=== PATIENT | female | born 1980 | race Caucasian/White ===

== ENCOUNTER 2017-05-02 09:52 | Emergency (ER) | payer OTHER ==
[~2017-05-02] VITALS: Ht 172.7 cm; Wt 84.5 kg
[~2017-05-02 09:52] MED LIST: ASCORBIC ACID500 M3 PO; BACLOFEN10 MG PO; CLARITIN10 M2 PO; COUMADIN2.5 MG PO; COUMADIN5 MG PO; DOCUSATE SODIU100 MG PO; FERROUS SULFAT325 MG PO; FOLIC ACID1 MG PO; GABAPENTIN300 MG PO; MORPHINE SULFAT15 M1 PO; MOTRIN800 MG PO; OXYCODONE HCL10 MG PO; POLYETHYLENE GL17 GM PO; Percocet 5/325,Endoc PO; SENNA-TIME S T1 EACH PO; THERAGRAN1 TABLET PO; ZANTAC300 MG PO
[2017-05-02 10:26] LABS: POINT-OF-CARE METER ID UU13113778
[2017-05-02 10:51] LABS: BASOPHIL COUNT 0.1 K/uL (0-0.1); EOSINOPHIL (%) 2.6 % (0-5); EOSINOPHIL COUNT 0.2 K/uL (0-0.3); HEMATOCRIT 48.3 % (36.0-46.0); IMMATURE GRANULOCYTE (%) 0.3 % (0.0-0.7); INSTRUMENT ABS NEUTROPHIL CT 5.9 K/uL; LYMPHOCYTE COUNT 2.5 K/uL (1.0-2.8); MCV 82.8 FL (83-99); MEAN PLAT.VOLUME 9.4 uM^3 (9.5-12.4); MONOCYTE (%) 6.2 % (3-12); MONOCYTE COUNT 0.6 K/uL (0-0.8); NEUTROPHIL (%) 63.7 % (45-76); NEUTROPHIL COUNT 5.9 K/uL (1.8-6.4); PLATELET COUNT 296 K/uL (156-360); RBC DIS.WIDTH-CV 11.7 % (11.8-14.6); RBC DIS.WIDTH-SD 35.2 % (39-53); RED BLOOD COUNT 5.83 M/uL (3.80-5.20); WHITE BLOOD COUNT 9.3 K/uL (4.1-10.2)
[2017-05-02 11:03] LABS: CHLORIDE 99 mEq/L (99-109); POTASSIUM 3.4 mEq/L (3.7-5.4); SODIUM 133 mEq/L (136-147)
[2017-05-02 11:05] LABS: GLUCOSE 312 mg/dL (70-99)
[2017-05-02 11:06] LABS: ANION GAP 11 MEQ/L (2-14)
[2017-05-02 11:07] LABS: TOTAL BILIRUBIN 0.9 mg/dL (0.0-1.0)
[2017-05-02 11:09] LABS: ALKALINE PHOSPHATASE 81 IU/L (3-129); GFR ESTIMATE (CALCULATED) > 59 mL/min/
[2017-05-02 11:10] LABS: UREA NITROGEN (BUN) 10 mg/dL (9-23)
[2017-05-02 11:11] LABS: Estimated Average Glucose 269 mg/dL (70-123)
[2017-05-02 12:57] LABS: POINT-OF-CARE METER ID UU13113702
[2017-05-02] MEDS ORDERED: GLUCOPHAGE500 MG PO (13:14)
[2017-05-02 13:55] VITALS: BP 122/76
== END 2017-05-02 13:56 | disposition home or self-care (01) ==
LOC: EME 09:52
PROVIDERS: Emergency Medicine
DX: E11.9 Type 2 diabetes mellitus without complications (principal); F17.200 Nicotine dependence, unspecified, uncomplicated; Z79.84 Long term (current) use of oral hypoglycemic drugs; Z88.0 Allergy status to penicillin
CPT/HCPCS: 80053; 82803; 82948; 83036; 85025; 99281; 99285; J7030

== ENCOUNTER 2017-05-10 14:13 | Emergency (ER) | payer OTHER ==
[~2017-05-10] VITALS: Ht 172.7 cm; Wt 82.2 kg
[~2017-05-10 14:13] MED LIST changes: +GLUCOPHAGE500 MG PO
[2017-05-10 14:38] LABS: POINT-OF-CARE METER ID UU13113778
[2017-05-10 15:53] LABS: HEMATOCRIT 46.7 % (36.0-46.0); MCH 28.8 PG (29.0-34.0); MCHC 34.3 G/DL (30.0-36.0); MCV 84.1 FL (83-99); MEAN PLAT.VOLUME 9.3 uM^3 (9.5-12.4); PLATELET COUNT 309 K/uL (156-360); RBC DIS.WIDTH-CV 11.7 % (11.8-14.6); RBC DIS.WIDTH-SD 35.4 % (39-53); RED BLOOD COUNT 5.55 M/uL (3.80-5.20); WHITE BLOOD COUNT 11.6 K/uL (4.1-10.2)
[2017-05-10 16:00] LABS: CHLORIDE 102 mEq/L (99-109); POTASSIUM 4.1 mEq/L (3.7-5.4); SODIUM 135 mEq/L (136-147)
[2017-05-10 16:03] LABS: GLUCOSE 139 mg/dL (70-99)
[2017-05-10 16:04] LABS: ANION GAP 9 MEQ/L (2-14); TOTAL BILIRUBIN 1.1 mg/dL (0.0-1.0)
[2017-05-10 16:06] LABS: ALKALINE PHOSPHATASE 68 IU/L (3-129); GFR ESTIMATE (CALCULATED) > 59 mL/min/
[2017-05-10 16:07] LABS: UREA NITROGEN (BUN) 13 mg/dL (9-23)
[2017-05-10 16:10] LABS: LIPASE 20 U/L (1.0-51.0)
[2017-05-10 16:18] LABS: QUANTITATIVE HCG < 4.0 MIU/ML
[2017-05-10 16:33] LABS: ADD MIUA? YES; BILIRUBIN NEGATIVE; BLOOD NEGATIVE; COLOR YELLOW ((YELLOW)); GLUCOSE (STRIP) NEGATIVE; KETONES 20; LEUKOCYTES TRACE; NITRITE NEGATIVE; PROTEIN (STRIP) NEGATIVE; SPECIFIC GRAVITY 1.018 (1.000-1.030); UROBILINOGEN 0.2 MG/DL (0.2-1.0)
[2017-05-10 16:52] LABS: BACTERIA NONE SEEN /HPF; EPITHELIAL CELLS 2+ /HPF; MUCUS TRACE /LPF; RED BLOOD CELLS 0-5 /HPF (0-5); UCUL ADDED? NO; WHITE BLOOD CELLS 0-5 /HPF (0-5)
[2017-05-10 19:46] VITALS: BP 115/77
== END 2017-05-10 19:53 | disposition home or self-care (01) ==
LOC: EME 14:13
DX: R11.2 Nausea with vomiting, unspecified (principal); R19.7 Diarrhea, unspecified; H10.9 Unspecified conjunctivitis; H53.149 Visual discomfort, unspecified; E11.65 Type 2 diabetes mellitus with hyperglycemia; Z79.84 Long term (current) use of oral hypoglycemic drugs; F17.200 Nicotine dependence, unspecified, uncomplicated; Z88.0 Allergy status to penicillin
CPT/HCPCS: 70450; 74177; 80053; 81003; 82803; 82948; 83690; 84702; 85027; 99281; 99284; J1885; J2270; J2405; J7030

== ENCOUNTER 2018-02-02 15:23 | Emergency (ER) | payer BC ==
[~2018-02-02] VITALS: Ht 172.7 cm; Wt 80.6 kg
[2018-02-02 15:54] LABS: HEMATOCRIT 44.1 % (36.0-46.0); HEMOGLOBIN 15.4 G/DL (11.9-15.5); MCH 29.7 PG (29.0-34.0); MCHC 34.9 G/DL (30.0-36.0); MCV 85.1 FL (83-99); PLATELET COUNT 287 K/uL (156-360); RBC DIS.WIDTH-CV 12.2 % (11.8-14.6); RBC DIS.WIDTH-SD 37.9 % (39-53); RED BLOOD COUNT 5.18 M/uL (3.80-5.20); WHITE BLOOD COUNT 10.6 K/uL (4.1-10.2)
[2018-02-02 15:58] LABS: CARBON DIOXIDE (BICARBONATE) 29.8 MEQ/L (20-31)
[2018-02-02 16:04] LABS: ALBUMIN 4.2 g/dL (3.2-4.8)
[2018-02-02 16:05] LABS: CHLORIDE 103 mEq/L (99-109); SODIUM 137 mEq/L (136-147)
[2018-02-02 16:07] LABS: GLUCOSE 118 mg/dL (70-99); TOTAL PROTEIN 7.2 g/dL (6.4-8.3)
[2018-02-02 16:09] LABS: TOTAL BILIRUBIN 2.2 mg/dL (0.0-1.0)
[2018-02-02 16:10] LABS: ALKALINE PHOSPHATASE 57 IU/L (3-129)
[2018-02-02 16:11] LABS: GFR ESTIMATE (CALCULATED) > 59 mL/min/
[2018-02-02 16:12] LABS: AST (GOT) 16 IU/L (2-34); UREA NITROGEN (BUN) 10 mg/dL (9-23)
[2018-02-02 16:13] LABS: ALT (GPT) 22 IU/L (3-49)
[2018-02-02] MEDS ORDERED: ZOFRAN ODT8 MG PO (17:53)
[2018-02-02] MEDS ORDERED: BENTYL20 MG PO (17:53)
[2018-02-02 18:08] VITALS: BP 120/81
== END 2018-02-02 18:09 | disposition home or self-care (01) ==
LOC: EME 15:23
PROVIDERS: Physician Assistant
DX: R10.9 Unspecified abdominal pain (principal); R11.2 Nausea with vomiting, unspecified; E11.9 Type 2 diabetes mellitus without complications; Z87.891 Personal history of nicotine dependence; Z90.49 Acquired absence of other specified parts of digestive tract; Z88.0 Allergy status to penicillin
CPT/HCPCS: 76705; 80053; 82803; 85027; 99281; 99283